=== PATIENT | male | born 1995 | race Caucasian/White ===

== ENCOUNTER → 2020-10-25 | Emergency (ER) | payer MEDICAID ==
[~2020-10-25] VITALS: Ht 190.5 cm; Wt 95.5 kg
[2020-10-25 22:35] VITALS: BP 165/99
== END ==
LOC: ER 22:03
DX: Z04.1 Encounter for examination and observation following transport accident (principal); Z72.89 Other problems related to lifestyle; V89.2XXA Person injured in unspecified motor-vehicle accident, traffic, initial encounter; Y93.89 Activity, other specified; Y92.89 Other specified places as the place of occurrence of the external cause; Y99.8 Other external cause status
CPT/HCPCS: 99283